=== PATIENT | female | born 1985 | race Caucasian/White ===

== ENCOUNTER 2021-04-15 07:14 | Inpatient (IN) ==
[2021-04-15] MEDS ORDERED: LACTATED RINGER'S 1,000 ML IV PRN (07:53)
[2021-04-15] MEDS ORDERED: OXYTOCIN 30 UNITS/500 ML BAG IV PRN ×2 (07:53→08:30)
[2021-04-15] MEDS ORDERED: OXYTOCIN 30 UNITS/500ML NSS ONE (08:06)
[2021-04-15] MEDS ORDERED: LIDOCAINE 1% LOCAL 20 ML VIAL ONE (08:13)
--- NOTE | 2021-04-15 08:24 | Delivery Summary ---
Vaginal Delivery Summary Date of Service April 15, 2021 Vaginal Delivery Summary The patient dilated to complete and pushed to deliver a viable female Apgars 8 and 9 via over intact perineum. Patient without control and pushed to rapidly deliver shoulders and body, pushing through a double nuchal cord. was vigorous and crying at . Cord clamped at 30 seconds of life and infant to maternal abdomen where the cord was then doubly clamped and cut. Placenta delivered spontaneously and intact, three-vessel cord. Hemostasis achieved with dilute pitocin and uterine massage. Cervix and sulci intact. EBL 300 cc. Small vaginal laceration repaired with 3-0 vicryl after 1% local lidocaine anesthesia. Mother and baby stable recovery. [facility] Vaginal Delivery Charge Vaginal Delivery Codes: 19910 global code for the antepartum, delivery, and post- Delivery Type Details:
--- NOTE | 2021-04-15 08:27 | History & Physical Report ---
Date of Service April 15, 2021 Assessment & Plan (1) Encounter for supervision of normal in multigravida: (2) Active labor at term: admit, iv, labs. membranes just ruptured, pt with urge to push, anticip 2nd stage soon. fhts categ 1. Admission and Anticipated Discharge Date Admission Date: April 15, 2021 History of Present Illness Chief Complaint: regular contractions Primary Care Provider: Melissa Talbot MD THIS IS LATE ENTRY 35yo at term with cc as noted. On arrival 9cm per nurse. Membranes intact. Contractions regular. PNL RH pos, RI, GBS neg OBH: x 2 Allergies Allergy/AdvReac Type Severity Reaction Status Date / Time procaine Allergy Unknown NOVOCAIN Verified 04/10/21 14:57 Home Medications Medication Instructions Recorded Confirmed Type prenat.vits,komal,msa-ctmk-uylnw 1 tab PO DAILY 10/06/20 04/10/21 History Patient History Medical History (Updated 04/15/21 @ 08:27 by Jazmine Powers MD, FACOG) History of chicken pox Surgical History (Updated 10/06/20 @ 10:59 by Nehal Alvarenga) S/P eye surgery Family History (Updated 10/06/20 @ 11:00 by Nehal Alvarenga) Denies family history of Ovarian cancer Prostate cancer Myocardial infarction Breast cancer Colorectal cancer Social History (Updated 10/06/20 @ 11:01 by Nehal Alvarenga) Smoking Status: Never smoker Hx Alcohol Use: No Hx Substance Use: No marital status: marital status details: Adolph Jennings ([phone] Current Living Situation: Spouse and Family Current Living Situation Comment: lives with spouse, 2 children, hamsters, cats-kids changing litter current occupational status: unemployed current occupation: homemaker Childhood Exposure to Second-Hand Smoke: No Dental Care, Regularly: Yes Physical Activity Frequency: 3-4 Times per Week Review of Systems as per Subjective / HPI Physical Exam Constitutional: WD/WN, vitals as above Genitourinary: Manual OB Exam: + cervical dilation (lip), + cervical effacement 100%, + station + 1 and + amniotic fluid (AROM) clear OB Exam Monitor Tracing: + external FHT monitor used (140 mod variability), + external uterine monitor used (q2), + category I and + normal FHT variability Results & Data ([facility]) Vital Signs (Past 12 Hours) Vital Signs Temp Pulse Resp BP 04/15/21 07:30 98.1 F 68 20 124/76 Coding Level of Care Code None Diagnoses Encounter for supervision of normal in multigravida Z34.80 Active labor at term
[2021-04-15] MEDS ORDERED: IBUPROFEN 600 MG TAB PO PRN (08:30)
[2021-04-15] MEDS ORDERED: ACETAMINOPHEN 325 MG TAB PO PRN (08:30)
[2021-04-15] MEDS ORDERED: oxyCODONE/ACETAMINOPHEN 5mg/325mg TAB PO PRN (08:30)
[2021-04-15 09:09] LABS: Hematocrit (blood only) 32.9 % (37-47); Hemoglobin 11.2 g/dL (12.0-16.0); Mean Corpuscular Hemoglobin 31.5 pg (25-34); Mean Corpuscular Volume 92.4 fL (80-100); Mean Platelet Volume 9.5 fL (7.4-10.4); Platelet Count 183 K/uL (130-400); RDW Coefficient of Variation 13.1 % (11.5-14.5); RDW Standard Deviation 44.2 fL (36.4-46.3); Red Blood Count 3.56 M/uL (4.2-5.4); White Blood Count 11.43 K/uL (4.8-10.8)
[2021-04-15] MEDS ORDERED: HYDROCORTISONE ACETATE 25 MG SUPP PR PRN (09:55)
[2021-04-15] MEDS ORDERED: SUPERCREAM 0.870% 15 GM JAR EXT PRN (09:55)
[2021-04-15] MEDS ORDERED: DIPHTHERIA/TETANUS/PERTUSSIS 0.5 ML SYR/VIAL IM ONE (09:55)
[2021-04-15] MEDS ORDERED: BENZOCAINE 20% AER SPR 82.5 GM CAN EXT PRN (09:55)
[2021-04-15] MEDS ORDERED: OXYTOCIN 20 UNITS in LACTATED RINGER'S 1,000 ML IV SCH (10:15)
[2021-04-15] MEDS ORDERED: PATIENT'S HEIGHT AND/OR WEIGHT NEEDED SCH (10:15)
[2021-04-15] MEDS: DOCUSATE SODIUM 100 MG CAP PO SCH (20:40)
--- NOTE | 2021-04-16 07:13 | Obstetrical Progress Note ---
Date of Service April 16, 2021 Assessment & Plan (1) examination following vaginal delivery: stable, doing well, desires d/c home, instructions reviewed, f/u 6 wk pp check. breast, rh pos, ri. Day #:: 1 Subjective Ambulation: ambulating normally Voiding: no voiding problems Diet Tolerance:: regular diet Lochia:: Small Feeding Type:: breast feeding no pain issues. Physical Exam Constitutional WD/WN, vitals as above Respiratory normal respiratory effort, lungs clear to auscultation Cardiovascular Rate/Rhythm: regular rate and regular rhythm Gastrointestinal (Abdomen) Inspection/Auscultation: abdomen normal to inspection Percussion/Palpation: abdomen soft Fundus firm 2cm down Musculoskeletal nt calves no edema Neurologic grossly normal Psychiatric A+Ox3, euthymic affect Results & Data ([facility]) Vital Signs (Past 12 Hours) Vital Signs Temp Pulse Resp BP 04/16/21 04:05 97.9 F 60 16 111/72 04/15/21 23:20 98.1 F 60 16 112/72 04/15/21 19:30 98.4 F 73 18 121/77
[2021-04-16] MEDS ORDERED: PRENATAL VITAMIN 1 TAB PO SCH (08:00)
[2021-04-16] MEDS: DOCUSATE SODIUM 100 MG CAP PO SCH (08:20)
== END 2021-04-16 10:35 | disposition home or self-care (01) | DRG 807 ==
LOC: OPB 07:14 → 4S1 07:15 → 4S2 13:30